=== PATIENT | male | born 1955 | race African-American/Black ===

== ENCOUNTER 2020-04-19 08:18 | Emergency (ER) | payer MEDICARE ==
[~2020-04-19] VITALS: Ht 177.8 cm; Wt 70.0 kg
[~2020-04-19 08:18] MED LIST: BACTRIM DS1 TAB PO; LOMOTIL2.5 MG PO; NEXIUM40 M1 OR; SINUS MED; ZOFRAN ODT4 MG OR
[2020-04-19] MEDS ORDERED: CYCLOBENZAPR5 MG PO (08:48)
[2020-04-19 08:55] VITALS: BP 171/98
== END 2020-04-19 08:54 | disposition home or self-care (01) ==
LOC: ED 08:18
DX: S29.012A Strain of muscle and tendon of back wall of thorax, initial encounter (principal); X50.0XXA Overexertion from strenuous movement or load, initial encounter; Y92.73 Farm field as the place of occurrence of the external cause

== ENCOUNTER 2020-08-19 13:08 | Emergency (ER) | payer MEDICARE ==
[~2020-08-19] VITALS: Ht 177.8 cm; Wt 75.0 kg
[~2020-08-19 13:08] MED LIST changes: +CYCLOBENZAPR5 MG PO
[2020-08-19 14:05] VITALS: BP 154/90
== END 2020-08-19 14:05 | disposition home or self-care (01) ==
LOC: ED 13:08
DX: Z20.828 Contact with and (suspected) exposure to other viral communicable diseases (principal)

== ENCOUNTER 2021-12-13 08:26 | Emergency (ER) | payer MEDICARE ==
[2021-12-13] VITALS (9 sets, daily range): BP systolic 155–173; BP diastolic 88–98
[~2021-12-13] VITALS: Ht 177.8 cm; Wt 42.8 kg
[2021-12-13 08:55] LABS: HEMATOCRIT 43.5 % (39.0-50.0); HEMOGLOBIN 14.3 g/dl (14.0-18.0); IMMATURE GRANULOCYTES 0.1 % (0.0-5.0); MEAN CELL VOLUME 93.8 fL CALC (80.0-100.0); MEAN CORPUSCULAR HGB 30.8 pG CALC (26.0-32.0); MEAN CORPUSCULAR HGB CONC 32.9 g/dL CAL (32.0-36.0); NEUT# 3.07 thou/uL (1.82-7.42); RED BLOOD COUNT 4.64 mill/uL (4.70-6.10); RED CELL DISTRI WIDTH 14.1 % (11.5-15.5)
[2021-12-13 09:06] LABS: ALBUMIN 4.3 g/dL (3.2-5.0); ALKALINE PHOSPHATASE 91 u/l (38-126); ANION GAP 13 (6-22 (CALC)); BILIRUBIN, TOTAL 0.5 mg/dL (0.0-1.4); BUN 19 mg/dL (8-23); BUN/CREATININE RATIO 21 (12-20 (CALC)); CARBON DIOXIDE 23 mmol/l (22-30); CHLORIDE 107 mmol/l (95-108); CREATININE 0.9 mg/dL (0.7-1.3); GFR > 60 ML/MIN (>=60 (CALC)); GFR FOR AFR.AMER. > 60 ML/MIN (>=60 (CALC)); LIPASE 145 u/l (23-300); POTASSIUM 4.2 mmol/l (3.5-5.1); SGOT/AST 40 u/l (19-48); SODIUM 139 mmol/l (137-146); TOTAL PROTEIN 7.8 g/dL (6.3-8.2)
[2021-12-13] MEDS ORDERED: PROTONIX40 M2 PO (10:20)
== END 2021-12-13 10:38 | disposition home or self-care (01) ==
LOC: ED 08:26
PROVIDERS: Family Medicine
DX: R10.13 Epigastric pain (principal); I10 Essential (primary) hypertension

== ENCOUNTER 2022-08-07 12:50 | Emergency (ER) | payer MEDICARE ==
[~2022-08-07] VITALS: Ht 177.8 cm; Wt 69.2 kg
[~2022-08-07 12:50] MED LIST changes: +PROTONIX40 M2 PO
[2022-08-07 14:45] VITALS: BP 136/86
== END 2022-08-07 14:45 | disposition left against medical advice (07) ==
LOC: ED 12:50 → LWOBS 14:45
DX: J10.1 Influenza due to other identified influenza virus with other respiratory manifestations (principal); Z53.21 Procedure and treatment not carried out due to patient leaving prior to being seen by health care provider